=== PATIENT | female | born 1955 | race Caucasian/White ===

== ENCOUNTER 2022-03-06 13:03 | Outpatient (REF) | payer OTHER, SELFPAY ==
[2022-03-06 14:05] LABS: Phenytoin Dilantin 11.8 ug/mL (10.0-20.0)
== END 2022-03-06 13:04 | disposition home or self-care (01) ==
LOC: HO.LAB 13:03
PROVIDERS: PCP Internal Medicine; Visit Provider Psychiatry & Neurology Neurology
DX: G40.909 Epilepsy, unspecified, not intractable, without status epilepticus (principal)
CPT/HCPCS: 36415; 80185

== ENCOUNTER 2024-09-16 09:12 | Outpatient (REF) | payer MEDICARE, SELFPAY ==
[2024-09-16 10:08] LABS: Phenytoin Dilantin 15.1 ug/mL (10.0-20.0)
== END 2024-09-16 09:13 | disposition home or self-care (01) ==
LOC: HO.LAB 09:12
PROVIDERS: PCP Internal Medicine; Visit Provider Registered Nurse
DX: G40.909 Epilepsy, unspecified, not intractable, without status epilepticus (principal); Z79.899 Other long term (current) drug therapy
CPT/HCPCS: 36415; 80185

== ENCOUNTER 2024-11-10 09:55 | Outpatient (AMB) | payer MEDICARE, MEDICAID, SELFPAY ==
--- NOTE | 2024-11-10 10:03 | A.OFFVIS_ITS ---
Intake Visit Reasons: 6 month follow up Accompanied by: Staff member Allergies No Known Allergies (No Known Allergies*) Allergy (Unverified 11/10/24 10:07) Medication List - Last Reconciled 11/10/24 by Laurita Farley CNP alendronate 70 mg PO QWEEK atorvastatin 80 mg PO DAILY levetiracetam 1,000 mg PO BID 30 days levetiracetam 500 mg PO BID 30 days metoprolol succinate ER 25 mg PO DAILY phenytoin sodium extended (Dilantin Extended) 200 mg (2 x 100 mg) PO DAILY 30 days trazodone 50 mg PO BEDTIME PRN 30 days HPI Comments Details: No seizures. No medication side effects. She was having trouble sleeping at [facility] and was awake most nights from about 1am-4am. She was sleeping a little during the day. No falls. 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 She has poor memory. She is on Keppra and Dilantin with good seizure control, no seizures in over 2 years. Her MRI of the brain showed some white matter changes in the right hemisphere or lateral to the ventricle. [facility] Medical History (Updated 11/10/24 @ 10:06 by Laurita Farley CNP) Insomnia Seizure disorder Review of Systems Const Denies chills, Denies daytime sleepiness, Reports difficulty sleeping, Denies fatigue, Denies fever(s), Denies frequent falls, Denies headache(s), Denies increased appetite, Denies poor appetite, Denies snoring, Denies weakness, Denies weight gain and Denies weight loss Eyes Denies loss of vision ENT Denies vertigo, Denies dizziness, Denies headache(s) and Denies neck pain Card Denies chest pain at rest, Denies chest pain with activity, Denies syncope, Denies leg edema, Denies palpitations, Denies dyspnea and Denies dyspnea on exertion Resp Denies cough, Denies dyspnea, Denies dyspnea on exertion and Denies snoring GI Denies abdominal pain, Denies constipation, Denies heartburn, Denies diarrhea and Denies nausea Denies urinary frequency, Denies urinary incontinence and Denies urinary urgency Musc Denies abnormal gait, Denies back pain, Denies myalgias, Denies arthralgias, Denies neck pain, Denies numbness and Denies tingling Neuro Denies abnormal gait, Denies vertigo, Denies dizziness, Denies syncope, Denies frequent falls, Denies headache(s), Denies lack of coordination, Denies loss of vision, Reports memory loss, Denies numbness, Denies Other visual disturbances, Denies restless legs, Denies seizure-like activity, Denies tingling, Denies paresthesias, Denies tremor(s) and Denies weakness Psych Denies anxiety, Denies depression, Denies auditory hallucinations, Reports memory loss and Denies visual hallucinations Endo Denies fatigue and Denies palpitations Physical Exam Const Other: General Appearance:? normal, in no acute distress. Heart:? S1, S2 normal, no murmurs. Lungs:? clear anteriorly and posteriorly. Musculoskeletal:? normal. Extremities:? no edema. Psych:? alert, cooperative with exam. Neuro Other: Abnormal Neurological Findings:?none.? Mental Status: alert and oriented X 3. Normal attention, orientation, memory, and affect. Cranial Nerves: Pupils are equal, round, and reactive to light. External ocular muscles are intact. Visual chandra are full, no ptosis. Face is symmetrical, no facial weakness or droop. Facial sensations are normal. Tongue protrudes in midline. Palate elevates symmetrically. Shoulder shrugging is normal Motor Examination: Normal muscle tone, bulk and strength. No atrophy or fasciculations. No drift of the extended upper extremities. DTR 2+. Plantars are flexor. Sensory Exam: Normal light touch, temperature, pinprick, vibration, and joint-position sensations. Rhomberg sign is absent. Coordination: No ataxia. No titubation. [id number], [id number] test, and rapid alternating movements were normal. Gait Exam: Within normal limits. Cerebellar Signs: [id number] is okay. Extrapyramidal System: No tremor, rigidity with normal facial expressions. No bradykinesia. No bradyphrenia. Normal arm swing and posture. No propulsion or retropulsion. Speech: Normal. Results Reviewed Results Reviewed: Laboratory Tests 09/16/24 09:25 Phenytoin 15.1 Assessment & Plan Assessment & Plan (1) Seizure disorder: Code(s): G40.909 - Epilepsy, unspecified, not intractable, without status epilepticus Category: Medical Plan: Continue levetiracetam 1000mg 1 tablet twice a day. Continue levetiracetam 500mg 1 tablet twice a day. Continue Dilantin 100mg 2 capsules daily. (2) Insomnia: Code(s): G47.00 - Insomnia, unspecified Category: Medical Qualifiers: Insomnia type: unspecified Qualified Code(s): G47.00 - Insomnia, unspecified Plan: Increase trazodone 100mg 1 tablet at bedtime. Avoid day time naps. (3) History of traumatic brain injury: Code(s): Z87.820 - Personal history of traumatic brain injury Category: Medical Plan . Medications: New trazodone 100 mg PO BEDTIME 30 tabs 2RF 30 days Discontinued trazodone Discontinued Reason: Doctor's Order 50 mg PO BEDTIME 30 days PRN 30 tabs 2RF sleep Coding Level of Care Code Est Pt Level 4 (32144) Diagnoses Seizure disorder G40.909 Insomnia, unspecified type G47.00 Insomnia type: unspecified History of traumatic brain injury Z87.820
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
--- OUTSIDE RECORDS SUMMARY | 2024-11-10 10:27 | XMS_ITS | Clinical Summary ---
Author Organization [facility] Address [address] [place] [id number] Phone Care Team Providers Care Front Desk Monitor Name Role Phone Valencia Stephen MD Primary Care Provider [phone] Allergies No known active allergies Medications levETIRAcetam (KEPPRA) 1000 MG tablet Take 1,000 mg by mouth 2 (two) times a day. Active phenytoin (DILANTIN) 100 MG ER capsule Take 250 mg by mouth daily. At night Active senna (SENNA) 8.6 mg tablet Take 2 tablets by mouth daily. Active DAILY MULTI-VITAMIN ORAL Take by mouth. Activ e ferrous sulfate 325 mg (65 mg [place] iron) tablet Take 325 mg by mouth daily with breakfast. Active folic acid (FOLVITE) 1 MG tablet Take 1 mg by mouth daily. Active aspirin 81 MG EC tablet Take 81 mg by mouth daily. Active vitamin B complex (B COMPLEX 1 ORAL) Take by mouth. Activ e lactose-reduce d food (BOOST CALORIE SMART ORAL) Take by mouth. Activ e docusate (COLACE) 100 mg tablet Take 100 mg by mouth daily as needed for constipation. Active urine acetone test,tablet (ACETEST MISC) 650 mg by Miscellaneous route every 6 (six) hours as needed. Active atorvastatin (LIPITOR) 80 MG tablet Take 80 mg by mouth daily. Active lactulose (CONSTULOSE) 20 gram/30 mL Soln Take by mouth daily as needed. Active alendronate (FOSAMAX) 70 MG tablet Take 70 mg by mouth every 7 days. Take in the morning with a full glass of water, on an empty stomach, and do not take anything else by mouth or lie down for the next 30 min. Active Social History Tobacco Use Types Packs/Day Years Used Date Smoking Tobacco: Never Smokeless Tobacco: Never Alcohol Use Standard Drinks/Week Comments Never 0 (1 standard drink = 0.6 oz pur e alcohol) Education Answer Date Recorded Are you interested in more education? Not on jose e 08/02/2022 Are you concerned about learning? Not on file 08/02/2022 No 08/02/2022 No 08/02/2022 Digital Access Answer Date Recorded No 08/31/2022 No 08/31/2022 No 08/31/2022 Reliable internet access at home? Not on file 08/31/2022 Device with a working camera? Not on file Comments Unknown Sex and Gender Information Value Date Recorded Sex Assigned at Female 09/10/2018 1:11 PM EDT Legal Sex Female 12:49 PM EDT Gender Identity Female 09/10/2018 1:11 PM EDT Sexual Orientation Not on file Last Filed Vital Signs Vital Sign Reading Time Taken Comments Blood Pressure 140/75 09/15/2018 5:02 PM EDT Pulse 81 09/15/2018 5:02 PM EDT Temperature 36.7 C (98.1 F) 09/15/2018 5:02 PM EDT Respiratory Rate 18 09/15/2018 5:02 PM EDT Oxygen Saturation 100% 09/15/2018 5:02 PM EDT Inhaled Oxygen Concentration - - Weight 68 kg (150 lb) 09/15/2018 12:07 PM EDT Height - - Body Mass Index - - Plan of Treatment Health Maintenance Due Date Last Done Comments LIPID PANEL 1956 DEPRESSION SCREENING 1968 HEPATITIS C SCREENING 1974 SMOKING STATUS SCREENING (On ce After 26 Yrs) 1982 MAMMOGRAM 1996 COLOGUARD 2001 COLONOSCOPY 2001 COLORECTAL CANCER SCREENING 2001 FIT TEST 2001 FOBT 2001 SIGMOIDOSCOPY 2001 VIRTUAL COLONOSCOPY 2001 PNEUMOCOCCAL VACCINES (50+ years) (2 of 2 - PCV) 12/20/2014 12/20/2013 PHENYTOIN (DILANTIN) LEVEL 09/16/201909/15, 09/10/2018 ZOSTER VACCINES (2 of 2) 07/31/2020 06/05/2020 Adult Td,Tdap Booster 10/10/2020 10/10/2010 , 08/11/2002 OSTEOPOROSIS SCREENING INITI AL (ONE-TIME) 2021 COVID-19 VACCINE (3 - 2023-2 5 season) 2023 05/08/2020, 04/17/2020 RSV VACCINE (1 - 1-dose 75+ series) 2031 HEPATITIS A VACCINES Aged Out No long er eligible based on patient's age to complete this topic HIB VACCINES Aged Out No longer eligi ble based on patient's age to complete this topic MENINGOCOCCAL VACCINES (ACWY) Aged Out No longer eligible based on patient's age to complete this topic MENINGOCOCCAL VACCINES (B) Aged Out N o longer eligible based on patient's age to complete this topic Medical Devices Not on file Procedures Procedure Name Priority Date/Time Associated Diagnosis Comments DILANTIN LEVEL STAT 09/15/2018 12:50 PM EDT from Last 3 Months or Most Recently Relevant to Health Maintenance Results * (ABNORMAL) Dilantin level (09/15/2018 12:50 PM EDT) DILANTIN 20.1(H) 10 - 20 ug/mL [facility] Blood 09/15/2018 12:5 0 PM EDT 09/15/2018 1:01 PM EDT us Pan Romero MD LAB BLOOD ORDERABLES Final Resu lt [facility] [address] [place] [address] from Last 3 Months or Most Recently Relevant to Health Maintenance [facility] [place] [facility] [place] [facility] [place] [facility] [place] [facility] [employer] A[facility] Advance Directives For more information, please contact: [phone] (9AM - 5PM [facility], Friday-Friday) Documents on File Type Date Recorded 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 It is not the complete legal health record.[facility]
--- OUTSIDE RECORDS SUMMARY | 2024-11-10 10:27 | XMS_ITS ---
Author Name [facility] Organization Unknown Care Team Organization Name Specialty Phone Email Start Date End Da te [facility] Valencia Stephen Primary Care 02/12/2022
== END 2024-11-10 10:25 | disposition home or self-care (01) ==
LOC: HO.HSM 09:55
PROVIDERS: PCP Internal Medicine; Referring Provider Internal Medicine; Visit Provider Registered Nurse
DX: G40.909 Epilepsy, unspecified, not intractable, without status epilepticus (principal); G47.00 Insomnia, unspecified; Z87.820 Personal history of traumatic brain injury
CPT/HCPCS: 99214

== ENCOUNTER → 2024-11-10 09:55 | Outpatient (BNVA) | payer MEDICARE, MEDICAID, SELFPAY | PROVIDERS: PCP Internal Medicine; Referring Provider Internal Medicine; Visit Provider Registered Nurse | DX: G47.00 Insomnia, unspecified (principal); G40.909 Epilepsy, unspecified, not intractable, without status epilepticus; Z87.820 Personal history of traumatic brain injury | CPT/HCPCS: 99212 ==